=== PATIENT | male | born 1970 | race Caucasian/White ===

== ENCOUNTER 2018-08-25 08:00 | Outpatient (CLI) | payer MEDICAID ==
[2018-08-25 19:24] LABS: CALCIUM 9.9 mg/dL (8.5-10.3)
[2018-08-25 20:21] LABS: HB2 TOTAL 12.8 g/dL; HEMOGLOBIN A1C 1.55 g/dL; HEMOGLOBIN A1C % 13.2 % (4.6-6.2)
== END 2018-08-25 23:59 | disposition home or self-care (01) ==
LOC: LAB.WCP 08:00
PROVIDERS: ATTEND Family Medicine
DX: E11.9 Type 2 diabetes mellitus without complications (principal)
CPT/HCPCS: 36415; 80048; 82043; 83036

== ENCOUNTER 2018-10-06 18:05 | Outpatient (CLI) | payer MEDICAID ==
--- NOTE | 2018-10-07 11:12 | Ultrasound Report ---
Reason: VENOUS STASIS DERMATITIS Procedure Date: 10/06/2018 Accession Number: [id number] / [id number] Procedure: US - Ankle Brachial Index CPT Code: FULL RESULT: EXAM: BILATERAL ANKLE/BRACHIAL INDEX EXAM DATE: 10/06/2018 07:06 PM. CLINICAL HISTORY: Venous stasis dermatitis. COMPARISON: None. TECHNIQUE: A blood pressure cuff and pulse volume recording Doppler ultrasound was used to evaluate the arterial pressures in the arms and ankle. No images were acquired. FINDINGS: Brachial pressure: Right brachial artery: 134/61 mmHg, index 1.00 Left brachial artery: 123/62 mmHg, index 1.00 Right ankle pressures: Dorsalis pedis artery: Preserved brisk arterial upstroke by spectral duplex, normal waveform. Posterior tibial artery: 135/79 mmHg, index 1.08 preserved brisk arterial upstroke by spectral duplex, normal waveform. Left ankle pressures: Dorsalis pedis artery: Preserved brisk arterial upstroke by spectral duplex, normal waveform. Posterior tibial artery: 116/75 mmHg, index 0.94, Preserved brisk arterial upstroke by spectral duplex, normal waveform. IMPRESSION: 1. Right ankle/brachial index: 1.08. 2. Left ankle/brachial index: 0.94. Normal waveforms in the bilateral posterior tibial and dorsalis pedis arteries. This study should be viewed as overall normal on the arterial side bilaterally. ANKLE/BRACHIAL INDEX REFERENCE STANDARDS 1.0-1.4: Normal 0.90-0.99: Borderline < 0.9: Abnormal RADIA
== END 2018-10-06 18:06 | disposition home or self-care (01) ==
LOC: DI 18:05
PROVIDERS: ATTEND Family Medicine
DX: I83.10 Varicose veins of unspecified lower extremity with inflammation (principal)
CPT/HCPCS: 93922

== ENCOUNTER 2018-11-09 15:00 | Outpatient (CLI) | payer MEDICAID ==
[2018-11-09 19:42] LABS: HB2 TOTAL 14.7 g/dL; HEMOGLOBIN A1C 1.85 g/dL; HEMOGLOBIN A1C % 13.7 % (4.6-6.2)
== END 2018-11-09 15:01 | disposition home or self-care (01) ==
LOC: LAB.WCP 15:00
PROVIDERS: ATTEND Family Medicine
DX: E11.9 Type 2 diabetes mellitus without complications (principal)
CPT/HCPCS: 36415; 83036

== ENCOUNTER 2019-11-24 11:11 | Emergency (ER) | payer MEDICAID ==
[2019-11-24] MEDS ORDERED: ACETAMINOPHEN 325 MG TABLET PO STA (11:34)
--- NOTE | 2019-11-24 11:36 | ED Physician Documentation ---
PD HPI UPPER EXT INJURY - Stated complaint Stated Complaint: L ARM INJURY - Chief complaint Chief Complaint: Ext Problem - History obtained from History obtained from: Patient (49-year-old gentleman with poorly controlled diabetes and recent diagnosis of CHF dropped a box on his left hand 2 days ago and it is very painful and swollen. No other injuries. He says he did not break the skin.) Review of Systems Constitutional: denies: Fever, Chills Cardiac: denies: Chest pain / pressure, Palpitations Respiratory: denies: Dyspnea, Cough PD PAST MEDICAL HISTORY - Past Medical History Endocrine/Autoimmune: Type 2 diabetes : Other - Present Medications Home Medications: Ambulatory Orders Medication Instructions Recorded Confirmed Insulin Glargine [Lantus Solostar] 25 unit SQ DAILY PM 09/17/18 09/17/18 Insulin Lispro [Humalog Kwikpen 7 - 10 unit SUBQ QID 09/17/18 09/17/18 U-100] Sulfamethoxazole/Trimethoprim 1 cap PO TID 09/23/18 09/25/18 [Sulfamethoxazole-Tmp Ds Tablet] Cephalexin [Keflex] 500 mg PO Q6H #28 capsule 11/24/19 - Allergies Allergies/Adverse Reactions: Allergies Allergy/AdvReac Type Severity Reaction Status Date / Time No Known Drug Allergies Allergy Verified 11/24/19 11:25 - Social History Smoking Status: Current every day smoker PD ED PE NORMAL - Vitals Vital signs reviewed: Yes - General General: Alert and oriented X 3, No acute distress - HEENT HEENT: PERRL, EOMI - Extremities Extremities: Other (He is quite edematous and tender left hand especially near the carpals and dorsum of the hand. He really cannot range at all. It is v mildly red and warm.) - Neuro Neuro: Alert and oriented X 3, Normal speech Results - Vitals Vitals: Vital Signs - 24 hr 11/24/19 11/24/19 11:22 12:16 Temperature 36.8 C 36.2 C L Heart Rate 115 H 115 H Respiratory 18 20 Rate Blood Pressure 117/86 H 135/91 H O2 Saturation 94 100 Oxygen O2 Source Room air - Labs Labs: Laboratory Tests 11/24/19 11/24/19 12:11 12:11 WBC 11.9 H RBC 4.46 L Hgb 13.4 L Hct 42.8 MCV 96.0 H MCH 30.0 MCHC 31.3 L RDW 15.8 H Plt Count 243 MPV 10.6 Neut # (Auto) 10.3 H Lymph # (Auto) 0.6 L [place] # (Auto) 0.9 Eos # (Auto) 0.0 Baso # (Auto) 0.0 Absolute Nucleated RBC 0.00 Nucleated RBC % 0.0 Sodium 133 L Potassium 5.0 Chloride 90 L Carbon Dioxide 31 Anion Gap 12.0 BUN 77 H Creatinine 1.2 Estimated GFR (MDRD) 64 L Glucose 204 H Calcium 9.6 Total Bilirubin 1.6 H AST 108 H ALT 104 H Alkaline Phosphatase 468 H Total Protein 7.0 Albumin 2.6 L Globulin 4.4 H Albumin/Globulin Ratio 0.6 L Lipase 22 - Rads (name of study) X-ray left hand and forearm Radiology: EMP read contemporaneously (No fractures) PD MEDICAL DECISION MAKING - ED course ED course: 49-year-old uncontrolled diabetic presents with an injury to the left hand, some concern for cellulitis as well. Of note initially refused labs but I was able to talk him into it but he would not get undressed for an IV and tells me initially that no matter what the findings are he would not agree to admission. Labs notable for very mild leukocytosis, elevation of liver enzymes, probably related to recent diagnosis of CHF. Not convinced that there is a cellulitis but I am going to he is given close return precautions. Splint for comfort. He was mostly worried that the hand was broken which it does not appear to be on x- ray. Departure - Departure Disposition: 01 Home, Self Care Clinical Impression: Contusion of left hand Qualifiers: Encounter type: initial encounter Qualified Code(s): S60.222A - Contusion of left hand, initial encounter Cellulitis Qualifiers: Site of cellulitis: extremity Site of cellulitis of extremity: upper extremity Laterality: left Qualified Code(s): L03.114 - Cellulitis of left upper limb Condition: Good Record reviewed to determine appropriate education?: Yes Instructions: Cellulitis Dc, ED Contusion Hand Prescriptions: Cephalexin [Keflex] 500 mg PO Q6H #28 capsule Comments: Elevate it, wear the splints as needed for comfort. Return for new or worsening symptoms especially spreading redness or fevers. Follow-up with your primary care physician, next available appointment.
--- NOTE | 2019-11-24 12:08 | XRAY Report ---
PROCEDURE: Hand 3 View LT INDICATIONS: hand/wrist inj TECHNIQUE: 3 views of the hand(s) acquired. COMPARISON: X-ray forearm 11/24/2019 FINDINGS: Bones: No fractures or dislocations. No suspicious bony lesions. Soft tissues: No suspicious soft tissue calcifications. IMPRESSION: No visualized acute fracture or dislocation. However, occult injury cannot be excluded. Recommend paula rt interval imaging follow-up in 7-10 days as clinically indicated for additional evaluation. Reviewed by: iKm Espinoza MD on 11/24/2019 12:07 PM PDT Approved by: Kim Espinoza MD on 11/24/2019 12:07 PM PDT Station ID: [id number]
--- NOTE | 2019-11-24 12:08 | XRAY Report ---
PROCEDURE: Forearm LT INDICATIONS: hand/wrist inj TECHNIQUE: 2 views of the forearm were acquired. COMPARISON: X-ray hand 11/24/2019. FINDINGS: Bones: No fractures or dislocations. No suspicious bony lesions. Soft tissues: No suspicious soft tissue calcifications or masses. IMPRESSION: No visualized acute fracture or dislocation. However, occult injury cannot be excluded. Recommend paula rt interval imaging follow-up in 7-10 days as clinically indicated for additional evaluation. Reviewed by: Kim Espinoza MD on 11/24/2019 12:07 PM PDT Approved by: Kim Espinoza MD on 11/24/2019 12:07 PM PDT Station ID: [id number]
[2019-11-24 12:20] LABS: BASOPHILS % (AUTO) 0.3 %; EOSINOPHILS % (AUTO) 0.2 %; HGB - HEMOGLOBIN 13.4 g/dL (14.0-18.0); LYMPHOCYTES # (AUTO) 0.6 10^3/uL (1.5-3.5); LYMPHOCYTES % (AUTO) 5.1 %; MEAN CORPUSCULAR HGB CONC 31.3 g/dL (32.0-36.0); MEAN PLATELET VOLUME 10.6 fL (7.4-11.4); MONOCYTES # (AUTO) 0.9 10^3/uL (0.0-1.0); MONOCYTES % (AUTO) 7.5 %; NEUTROPHILS # (AUTO) 10.3 10^3/uL (1.5-6.6); NEUTROPHILS % (AUTO) 86.5 %; PLT - PLATELET COUNT 243 10^3/uL (130-450); RED BLOOD COUNT 4.46 10^6/uL (4.70-6.10); RED CELL DISTRIBUTION WIDTH 15.8 % (12.0-15.0); WHITE BLOOD COUNT 11.9 x10^3/uL (4.8-10.8)
[2019-11-24 12:31] LABS: ALBUMIN 2.6 g/dL (3.2-5.5); ALBUMIN/GLOBULIN RATIO 0.6 (1.0-2.2); BILIRUBIN,TOTAL 1.6 mg/dL (0.2-1.0); CALCIUM 9.6 mg/dL (8.5-10.3); CREATININE 1.2 mg/dL (0.6-1.2)
[2019-11-24] MEDS ORDERED: cephALEXin 250 MG CAPSULE PO STA (12:40)
[2019-11-24 13:06] VITALS: BP 123/76
== END 2019-11-24 13:13 | disposition home or self-care (01) ==
LOC: ED 11:11
DX: S60.222A Contusion of left hand, initial encounter (principal); W20.8XXA Other cause of strike by thrown, projected or falling object, initial encounter; L03.114 Cellulitis of left upper limb; E11.9 Type 2 diabetes mellitus without complications; Z79.4 Long term (current) use of insulin; I50.9 Heart failure, unspecified; F17.200 Nicotine dependence, unspecified, uncomplicated
CPT/HCPCS: 36415; 73090; 73130; 80053; 83690; 85025; 99284; A9270

== ENCOUNTER 2019-12-01 21:05 | Emergency (ER) | payer MEDICAID ==
--- NOTE | 2019-12-01 21:53 | ED Physician Documentation ---
History of Present Illness - Stated complaint Stated Complaint: SOA/RT FOOT DARK COLOR - Chief complaint Chief Complaint: Cardiac - History obtained from History obtained from: Patient - History of Present Illness Timing: How many days ago (2-3) Pain level max: 0 Pain level now: 0 Improved by: rest Worsened by: exertion Associated symptoms: dyspnea, weakness - Additonal information Additional information: c/o 2-3 days of generalized weakness that has progressed to the point of having difficulty standing/ambulating. Also c/o 2-3 days worsening dyspnea. Patient was T+R from this ED 1 week ago for RUE injury. Patient was inpatient at [facility] from 10/24/2019 until 11/05/2019, d/c diagnoses included acute and chronic respiratory failure with hypoxia, acute on chronic systolic CHF NYHA IV, methamphetamine abuse, anasarca, type 2 diabetes, and diabetic foot ulcer. He has his medications at bedside, which include an antibiotic from his ED visit 1 week ago (full bottle, only 1 tablet missing) and rx bottle of cipro from when he was discharged from [facility] (still a few tablets of this in bottle). Review of Systems Constitutional: reports: Fatigue. denies: Fever, Chills, Sweats Eyes: reports: Reviewed and negative Ears: reports: Reviewed and negative Nose: reports: Reviewed and negative Throat: reports: Reviewed and negative Cardiac: reports: Pedal edema. denies: Chest pain / pressure, Palpitations Respiratory: reports: Dyspnea. denies: Cough GI: reports: Reviewed and negative : denies: Dysuria, Frequency Skin: reports: Rash (BLE erythema), Lesions (BLE ulcerations) Musculoskeletal: reports: Extremity pain (BLE), Extremity swelling (BLE) Neurologic: reports: Generalized weakness. denies: Focal weakness, Numbness, Confused, Altered mental status, Headache PD PAST MEDICAL HISTORY - Past Medical History Cardiovascular: Congestive heart failure Respiratory: None Neuro: None Endocrine/Autoimmune: Type 2 diabetes GI: None : Other HEENT: None Derm: None - Present Medications Home Medications: Ambulatory Orders Medication Instructions Recorded Confirmed Insulin Glargine [Lantus Solostar] 25 unit SQ DAILY PM 09/17/18 09/17/18 Insulin Lispro [Humalog Kwikpen 7 - 10 unit SUBQ QID 09/17/18 09/17/18 U-100] Cephalexin [Keflex] 500 mg PO Q6H #28 capsule 11/24/19 metFORMIN [Glucophage] 500 mg PO BIDWM 11/24/19 11/24/19 metOLazone [Metolazone] 2.5 mg ORAL DAILY 11/24/19 11/24/19 - Allergies Allergies/Adverse Reactions: Allergies Allergy/AdvReac Type Severity Reaction Status Date / Time No Known Drug Allergies Allergy Verified 11/24/19 11:25 - Social History Does the pt smoke?: No Smoking Status: Current every day smoker Does the pt have substance abuse?: Yes - Immunizations Immunizations are current?: No PD ED PE NORMAL - Vitals Vital signs reviewed: Yes - General General: Alert and oriented X 3, No acute distress, Other (thin-appearing male, pale complexion.) - HEENT HEENT: PERRL, EOMI, Moist mucous membranes - Neck Neck: Supple, no meningeal sign, No JVD - Cardiac Cardiac: RRR, No murmur, No gallop, No rub - Respiratory Respiratory: No respiratory distress - Abdomen Abdomen: Soft, Non tender - Derm Derm: Other (pale complexion) - Neuro Neuro: Alert and oriented X 3 Eye Opening: Spontaneous Motor: Obeys Commands Verbal: Oriented GCS Score: 15 PD ED PE EXPANDED - Respiratory Respiratory: Rales, Decreased breath sounds - Extremities Extremities: Pedal edema bilateral (severe BLE edema, moderate BUE edema. ulcerations of BLE. Both legs are erythematous distal to knees with delayed (>2 sec) capillary refill in all toes) Results - Vitals Vitals: Vital Signs - 24 hr 12/01/19 12/01/19 12/01/19 21:05 21:26 21:57 Temperature 35.8 C L Heart Rate 97 71 97 Respiratory 24 33 H 29 H Rate Blood Pressure 106/74 106/74 117/61 O2 Saturation 97 97 94 12/01/19 12/02/19 12/02/19 22:52 00:05 02:00 Temperature Heart Rate 65 99 92 Respiratory 16 22 31 H Rate Blood Pressure 105/83 H 113/84 H 109/87 H O2 Saturation 95 90 L 93 12/02/19 12/02/19 12/02/19 02:47 03:05 03:32 Temperature Heart Rate 100 91 61 Respiratory 90 H 16 21 Rate Blood Pressure 96/71 96/66 O2 Saturation 21 L 91 L 0702/20 05:34 Temperature Heart Rate 96 Respiratory 16 Rate Blood Pressure 106/75 O2 Saturation 100 Oxygen O2 Source Room air - EKG (time done) No standard instances Rate: Rate (enter#) (97) Rhythm: NSR Joffre: LAD Intervals: Prolonged WI, Wide QRS (NSIVCD) QRS: LVH Ischemia: Q waves (II, III, aVF, V1-V4), Non specific changes - Labs Labs: Laboratory Tests 12/01/19 12/01/19 12/01/19 22:39 22:39 22:39 WBC 14.9 H RBC 4.81 Hgb 14.8 Hct 46.5 MCV 96.7 H MCH 30.8 MCHC 31.8 L RDW 16.9 H Plt Count 228 MPV 11.7 H Neut # (Auto) 13.7 H Lymph # (Auto) 0.6 L [place] # (Auto) 0.5 Eos # (Auto) 0.0 Baso # (Auto) 0.0 Absolute Nucleated RBC 0.02 Nucleated RBC % 0.1 PT 17.6 H INR 1.6 H APTT 27.2 Sodium 130 L Potassium 7.6 H* Chloride 90 L Carbon Dioxide 26 Anion Gap 14.0 H BUN 93 H* Creatinine 2.6 H Estimated GFR (MDRD) 26 L Glucose 210 H POC Whole Bld Glucose Lactic Acid Calcium 8.8 Total Bilirubin 1.6 H AST 74 H ALT 84 H Alkaline Phosphatase 428 H Troponin I High Sens B-Natriuretic Peptide Total Protein 6.9 Albumin 2.3 L Globulin 4.6 H Albumin/Globulin Ratio 0.5 L Lipase 19 L 12/01/19 12/01/19 12/01/19 22:39 22:39 22:39 WBC RBC Hgb Hct MCV MCH MCHC RDW Plt Count MPV Neut # (Auto) Lymph # (Auto) [place] # (Auto) Eos # (Auto) Baso # (Auto) Absolute Nucleated RBC Nucleated RBC % PT INR APTT Sodium Potassium Chloride Carbon Dioxide Anion Gap BUN Creatinine Estimated GFR (MDRD) Glucose POC Whole Bld Glucose Lactic Acid 4.3 H* Calcium Total Bilirubin AST ALT Alkaline Phosphatase Troponin I High Sens 26.9 H* B-Natriuretic Peptide 1292 H Total Protein Albumin Globulin Albumin/Globulin Ratio Lipase 12/02/19 12/02/19 01:40 02:35 WBC RBC Hgb Hct MCV MCH MCHC RDW Plt Count MPV Neut # (Auto) Lymph # (Auto) [place] # (Auto) Eos # (Auto) Baso # (Auto) Absolute Nucleated RBC Nucleated RBC % PT INR APTT Sodium Potassium 7.7 H* Chloride Carbon Dioxide Anion Gap BUN Creatinine Estimated GFR (MDRD) Glucose POC Whole Bld Glucose 238 H Lactic Acid Calcium Total Bilirubin AST ALT Alkaline Phosphatase Troponin I High Sens B-Natriuretic Peptide Total Protein Albumin Globulin Albumin/Globulin Ratio Lipase - Rads (name of study) chest xray Radiology: Prelim report reviewed, See rad report PD MEDICAL DECISION MAKING - ED course Complexity details: reviewed old records, reviewed results, re-evaluated patient, considered differential, d/w patient ED course: Severe hyperkalemia, confirmed with repeat potassium level. Also appears to have CHF exacerbation (high BNP, CXR c/w acute CHF and bilateral effusions). High BUN, elevated creatinine (his BUN was high during [facility] stay, but he had normal creatinine at that time, as well as 1 week ago when he was evaluated in [facility] ED). BLE possibly cellulitic, although I suspect his exam findings are likely due to PVD. He has marked anasarca. 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 D/W Dr. Santos ([facility] hospitalist); recommends transfer to higher level of care due to complexity of patient's presentation and PMH. Patient repeatedly and adamantly refuses consideration for transfer to [facility]. Afte r further discussion, patient agreeable to [facility] or [facility]. [facility] contacted, no ICU beds available. D/W Dr. Saxena (at [facility]), recommends zyvox and cefepime for possible cellulitis (also considering elevated WBC and lactate level). Also recommends 10mg Albuterol. She accepts transfer to [facility]/[place]. - Critical Care Time(min): 90 Time Includes: Direct patient care, Review records, Reassess patient, Document care, Coordinate care, Medical consult, Family consult for tx dec, See progress note Data interpretation: Labs, Pulse ox, CXR, See progress note Procedures included in critical care time: See progress note Procedures excluded from critical care time: EKG, See progress note Departure - Departure Disposition: 02 Transfer Acute Care Hosp Clinical Impression: Hyperkalemia, Anasarca, Acute renal insufficiency Congestive heart failure Qualifiers: Heart failure type: unspecified Heart failure chronicity: acute on chronic Qualified Code(s): I50.9 - Heart failure, unspecified Condition: Serious Discharge Date/Time: 12/02/19 05:58
[2019-12-01 22:45] LABS: BASOPHILS % (AUTO) 0.3 %; HGB - HEMOGLOBIN 14.8 g/dL (14.0-18.0); LYMPHOCYTES # (AUTO) 0.6 10^3/uL (1.5-3.5); LYMPHOCYTES % (AUTO) 4.2 %; MEAN CORPUSCULAR HEMOGLOBIN 30.8 pg (27.0-31.0); MEAN CORPUSCULAR HGB CONC 31.8 g/dL (32.0-36.0); MEAN CORPUSCULAR VOLUME 96.7 fL (80.0-94.0); MEAN PLATELET VOLUME 11.7 fL (7.4-11.4); MONOCYTES # (AUTO) 0.5 10^3/uL (0.0-1.0); NEUTROPHILS # (AUTO) 13.7 10^3/uL (1.5-6.6); NEUTROPHILS % (AUTO) 91.9 %; PLT - PLATELET COUNT 228 10^3/uL (130-450); RED BLOOD COUNT 4.81 10^6/uL (4.70-6.10); RED CELL DISTRIBUTION WIDTH 16.9 % (12.0-15.0); WHITE BLOOD COUNT 14.9 x10^3/uL (4.8-10.8)
[2019-12-01 22:49] LABS: INR 1.6 (0.8-1.2); PT - PROTHROMBIN TIME 17.6 secs (9.9-12.6)
[2019-12-01 22:57] LABS: PARTIAL THROMBOPLASTIN TIME 27.2 secs (24.9-33.3)
[2019-12-01 23:00] LABS: ALBUMIN 2.3 g/dL (3.2-5.5); ALBUMIN/GLOBULIN RATIO 0.5 (1.0-2.2); BILIRUBIN,TOTAL 1.6 mg/dL (0.2-1.0); CALCIUM 8.8 mg/dL (8.5-10.3); CREATININE 2.6 mg/dL (0.6-1.2); TOTAL PROTEIN 6.9 g/dL (6.7-8.2)
[2019-12-01] MEDS ORDERED: INSULIN REGULAR HUMAN 100 UNIT/1 ML 10 ML MDV IVP STA (23:04)
[2019-12-01] MEDS ORDERED: DEXTROSE 50% ABBOJECT 25 GM/50 ML SYRINGE IVP STA (23:05)
[2019-12-01] MEDS ORDERED: CALCIUM GLUCONATE 1000 MG/10 ML VIAL IVP STA (23:06)
[2019-12-02] MEDS ORDERED: LINEZOLID 600 MG/300 ML 600 MG/300 ML BAG IV STA (02:50)
[2019-12-02] MEDS ORDERED: CEFEPIME 1 GM in SODIUM CHLORIDE 0.9% MINIBAG 100 ML IV STA (02:50)
[2019-12-02] MEDS ORDERED: ALBUTEROL NEB 2.5 MG/3 ML INH STA (02:55)
[2019-12-02] MEDS ORDERED: SODIUM BICARBONATE 150 MEQ in DEXTROSE 5% 1,000 ML IV STA (02:55)
[2019-12-02] MEDS ORDERED: SODIUM BICARBONATE 8.4% 50 MEQ/50 ML VIAL ONE (03:16)
[2019-12-02] MEDS ORDERED: DEXTROSE 5% 1,000 ML IV ONE (03:22)
[2019-12-02] MEDS: ALBUTEROL NEB 2.5 MG/3 ML INH STA ×2 (03:28→03:29)
[2019-12-02 05:34] VITALS: BP 106/75
--- NOTE | 2019-12-02 08:31 | XRAY Report ---
PROCEDURE: Chest 2 View X-Ray INDICATIONS: dyspnea TECHNIQUE: 2 views of the chest. COMPARISON: None. FINDINGS: Surgical changes and devices: None. Lungs and pleura: There are bilateral small to moderate-sized pleural effusions with associated biba silar opacities consistent with compressive atelectasis or consolidation. Pulmonary vascular prominen ce is also demonstrated compatible with pulmonary edema. Mediastinum: The heart contours are obscured but heart appears enlarged. Bones and chest wall: No suspicious bony abnormalities. Soft tissues appear unremarkable. IMPRESSION: 1. Bilateral small to moderate pleural effusions with associated compressive atelectasis or consolida tion in the lung bases. 2. Pulmonary vascular prominence compatible with pulmonary edema. Given the pleural effusions and car diomegaly, the findings likely represent congestive heart failure. Reviewed by: Salvador Khan MD on 12/02/2019 8:29 AM PDT Approved by: Salvador Khan MD on 12/02/2019 8:29 AM PDT Station ID: [id number]
== END 2019-12-02 05:58 | disposition short-term general hospital (02) ==
LOC: ED 21:05
DX: I50.9 Heart failure, unspecified (principal); E87.5 Hyperkalemia; R60.1 Generalized edema; N28.9 Disorder of kidney and ureter, unspecified; E11.622 Type 2 diabetes mellitus with other skin ulcer; L97.929 Non-pressure chronic ulcer of unspecified part of left lower leg with unspecified severity; L97.919 Non-pressure chronic ulcer of unspecified part of right lower leg with unspecified severity; Z79.4 Long term (current) use of insulin; I44.0 Atrioventricular block, first degree; Z90.5 Acquired absence of kidney
CPT/HCPCS: 36415; 71046; 80053; 83605; 83690; 83880; 84132; 84484; 85025; 85610; 85730; 87040; 93005; 94640; 96365; 96366; 96368; 96375; 99285; 99291; 99292; J1815; J2020